=== PATIENT | female | born 1985 | race Hispanic/Latino ===

== ENCOUNTER 2021-12-30 21:13 | Inpatient (IN) | payer OTHER ==
[~2021-12-30] VITALS: Ht 152.4 cm; Wt 66.3 kg
[2021-12-30 22:12] LABS: BASOPHILS % (AUTO) 0.3 % (0.0-5.0); EOSINOPHILS % (AUTO) 0.5 % (0.0-8.0); HEMATOCRIT 37.6 % (36-48); LYMPHOCYTES % (AUTO) 6.7 % (21.0-51.0); MEAN CORPUSCULAR HEMOGLOBIN 26.8 pg (27.0-33.0); MEAN CORPUSCULAR HGB CONC 33.5 g/dL (32.0-36.0); MEAN CORPUSCULAR VOLUME 79.8 fL (79-99); MONOCYTES % (AUTO) 2.6 % (3.0-13.0); NEUTROPHILS % (AUTO) 89.5 % (40.0-77.0); PLATELET COUNT (AUTO) 173 K/uL (130-400); RED BLOOD CELL COUNT(AUTO) 4.71 MIL/uL (4.00-5.50); RED CELL DISTRIBUTION WIDTH 17.1 % (11.0-15.5); WHITE BLOOD COUNT (AUTO) 11.8 K/uL (4.8-10.8)
[2021-12-30] MEDS ORDERED: HYDROMORPHONE 0.5 MG SYG (0.5MG/0.5ML) ONE (22:18)
[2021-12-30 22:26] LABS: CREATININE 0.8 mg/dL (0.5-1.5); POTASSIUM 3.8 mmol/L (3.5-5.1)
[2021-12-30 22:30] LABS: ALBUMIN 3.9 g/dL (3.5-5.0); TOTAL PROTEIN, SERUM 8.3 g/dL (6.0-8.3)
[2021-12-30] MEDS ORDERED: HYDROMORPHONE 0.5 MG SYG (0.5MG/0.5ML) IVP ONE (22:30)
[2021-12-30] MEDS ORDERED: ONDANSETRON 4MG INJ IVP ONE (22:30)
[2021-12-30] MEDS ORDERED: 0.9%NACL 1000ML 1,000 ML IV ONE (22:30)
[2021-12-31] VITALS (24 sets, daily range): BP systolic 91–137; BP diastolic 44–87
[2021-12-31] MEDS ORDERED: HYDROMORPHONE 0.5 MG SYG (0.5MG/0.5ML) IVP ONE
[2021-12-31] MEDS ORDERED: MAG/ALUM/SIMETH 30 ML UDCUP PO ONE (01:00)
[2021-12-31] MEDS ORDERED: HYDROMORPHONE 1 MG INJ IV PRN (01:00)
[2021-12-31] MEDS ORDERED: LIDOCAINE HCL 2% VISCOUS 15 ML UDCUP PO ONE (01:00)
[2021-12-31] MEDS ORDERED: ONDANSETRON 4MG INJ IV PRN (01:00)
[2021-12-31] MEDS ORDERED: DICYCLOMINE HCL 10 MG/5 ML ML PO ONE (01:00)
[2021-12-31] MEDS ORDERED: MORPHINE 2 MG SYG IV PRN (01:00)
[2021-12-31 01:45] LABS: APPEARANCE,URINE CLEAR (CLEAR); BILIRUBIN,URINE NEGATIVE (NEGATIVE); COLOR,URINE COLORLESS (YELLOW); GLUCOSE, URINE (UA) 500 mg/dL (NEGATIVE); KETONES,URINE 40 mg/dL (NEGATIVE); LEUKOCYTE ESTERASE ,URINE NEGATIVE Leu/uL (NEGATIVE); NITRATE,URINE NEGATIVE (NEGATIVE); OCCULT BLOOD,URINE NEGATIVE (NEGATIVE); PROTEIN,URINE NEGATIVE (NEGATIVE); UROBILINOGEN,URINE 0.2 mg/dL (0.2-1.0)
[2021-12-31 01:50] LABS: BACTERIA,URINE RARE /HPF (None Seen); MUCUS,URINE RARE LPF (None Seen); RBC,URINE 0-1 /HPF (0-1); SQUAMOUS EPITHELIAL CELL,UR RARE /HPF (0-2)
[2021-12-31] MEDS ORDERED: PROMETHAZINE HCL 25 MG/ML 1ML AMPULE IM ONE (02:30)
[2021-12-31] MEDS: LACTATED RINGERS 1000ML 1,000 ML IV SCH ×3 (02:34→21:49)
[2021-12-31] MEDS: ZOSYN 3.375GM+NS 50ML 50 ML IV SCH ×3 (05:22→21:00)
[2021-12-31 05:48] LABS: BASOPHILS % (AUTO) 0.1 % (0.0-5.0); HEMATOCRIT 35.2 % (36-48); LYMPHOCYTES % (AUTO) 4.1 % (21.0-51.0); MEAN CORPUSCULAR HEMOGLOBIN 26.3 pg (27.0-33.0); MEAN CORPUSCULAR HGB CONC 32.1 g/dL (32.0-36.0); MEAN CORPUSCULAR VOLUME 81.9 fL (79-99); MONOCYTES % (AUTO) 2.4 % (3.0-13.0); NEUTROPHILS % (AUTO) 93.2 % (40.0-77.0); PLATELET COUNT (AUTO) 267 K/uL (130-400); RED CELL DISTRIBUTION WIDTH 16.9 % (11.0-15.5); WHITE BLOOD COUNT (AUTO) 9.6 K/uL (4.8-10.8)
[2021-12-31 06:02] LABS: CREATININE 0.7 mg/dL (0.5-1.5); MAGNESIUM 1.6 mg/dL (1.80-2.40); POTASSIUM 3.5 mmol/L (3.5-5.1)
[2021-12-31 06:09] LABS: HEMOGLOBIN A1C 6.5 % (4.0-6.0); INR 0.93 (0.85-1.15); PROTHROMBIN TIME 9.9 SEC (9.6-11.6)
[2021-12-31 06:11] LABS: PARTIAL THROMBOPLASTIN TIME 24.2 SEC (26.3-35.5)
[2021-12-31] MEDS: FAMOTIDINE 20MG VIAL IV SCH ×2 (09:06→21:49)
[2021-12-31] MEDS ORDERED: BUPIVACAINE/PF 0.5% 10ML VIAL ONE (16:47)
[2021-12-31] MEDS ORDERED: MIDAZOLAM HCL 1 MG/ML 2ML VIAL ONE (18:22)
[2021-12-31] MEDS ORDERED: PROPOFOL 10 MG/ML 20ML VIAL IV ONE (18:23)
[2021-12-31] MEDS ORDERED: FENTANYL CITRATE PF 50 MCG/1 ML 5ML AMP IV ONE (18:25)
[2021-12-31] MEDS ORDERED: ONDANSETRON 4MG INJ ONE (18:27)
[2021-12-31] MEDS ORDERED: ROPIVACAINE 0.5% 5MG/ML 30ML IJ ONE (18:35)
[2021-12-31] MEDS ORDERED: ROCURONIUM 10MG/1ML SYR 10 MG/ML ML ONE (18:38)
[2021-12-31] MEDS ORDERED: MEPERIDINE-PF 25 MG/ML SYG ONE (18:55)
[2021-12-31] MEDS ORDERED: KETOROLAC 30MG VIAL (30MG/ML) ONE (19:04)
[2021-12-31] MEDS ORDERED: GLYCOPYRROLATE 1 MG/5 ML SYRINGE ONE (19:30)
[2021-12-31] MEDS ORDERED: NEOSTIGMINE 5MG/5ML SYR IV ONE (19:30)
[2021-12-31] MEDS ORDERED: KETOROLAC 15MG/ML VIAL (15MG/ML) IM PRN (21:30)
[2021-12-31] MEDS ORDERED: MORPHINE 4 MG SYG IM PRN (21:30)
[2022-01-01] VITALS (10 sets, daily range): BP systolic 95–118; BP diastolic 50–64
[2022-01-01] MEDS: ZOSYN 3.375GM+NS 50ML 50 ML IV SCH ×3 (04:29→21:40)
[2022-01-01 05:27] LABS: HEMATOCRIT 30.4 % (36-48); MEAN CORPUSCULAR HEMOGLOBIN 26.3 pg (27.0-33.0); MEAN CORPUSCULAR HGB CONC 32.2 g/dL (32.0-36.0); MEAN CORPUSCULAR VOLUME 81.7 fL (79-99); RED BLOOD CELL COUNT(AUTO) 3.72 MIL/uL (4.00-5.50); RED CELL DISTRIBUTION WIDTH 17.1 % (11.0-15.5); WHITE BLOOD COUNT (AUTO) 7.7 K/uL (4.8-10.8)
[2022-01-01 05:52] LABS: ALBUMIN 2.5 g/dL (3.5-5.0); CREATININE 0.7 mg/dL (0.5-1.5); PHOSPHORUS 2.4 mg/dL (2.5-4.9); POTASSIUM 3.1 mmol/L (3.5-5.1)
[2022-01-01] MEDS: LACTATED RINGERS 1000ML 1,000 ML IV SCH ×2 (07:30→17:30)
[2022-01-01] MEDS: FAMOTIDINE 20MG VIAL IV SCH ×2 (09:20→21:40)
[2022-01-01] MEDS: KETOROLAC 15MG/ML VIAL (15MG/ML) IV PRN ×2 (09:24→18:38)
[2022-01-01] MEDS ORDERED: KCL 20 MEQ ERTAB PO ONE (13:00)
[2022-01-01] MEDS ORDERED: POLYETHYLENE GLYCOL 3350 17 GM POWD.PACK PO ONE (13:00)
[2022-01-01] MEDS ORDERED: ACET-2079 PO (18:02)
[2022-01-01] MEDS ORDERED: POLY17PO4 PO (18:02)
[2022-01-01] MEDS ORDERED: DOCU-116 PO (18:02)
[2022-01-02] MEDS: KETOROLAC 15MG/ML VIAL (15MG/ML) IV PRN ×3 (00:49→14:19)
[2022-01-02] MEDS: LACTATED RINGERS 1000ML 1,000 ML IV SCH (03:30)
[2022-01-02 03:40] VITALS: BP 118/67
[2022-01-02 05:43] LABS: HEMATOCRIT 26.4 % (36-48); MEAN CORPUSCULAR HEMOGLOBIN 26.3 pg (27.0-33.0); MEAN CORPUSCULAR HGB CONC 31.8 g/dL (32.0-36.0); MEAN CORPUSCULAR VOLUME 82.5 fL (79-99); RED BLOOD CELL COUNT(AUTO) 3.2 MIL/uL (4.00-5.50); WHITE BLOOD COUNT (AUTO) 5.3 K/uL (4.8-10.8)
[2022-01-02 05:54] LABS: CREATININE 0.7 mg/dL (0.5-1.5); POTASSIUM 3.3 mmol/L (3.5-5.1)
[2022-01-02 07:05] VITALS: BP 123/63
[2022-01-02] MEDS: ZOSYN 3.375GM+NS 50ML 50 ML IV SCH ×2 (07:23→12:07)
[2022-01-02] MEDS: FAMOTIDINE 20MG VIAL IV SCH (08:27)
[2022-01-02] MEDS ORDERED: POLYETHYLENE GLYCOL 3350 17 GM POWD.PACK PO SCH (09:00)
[2022-01-02 11:05] VITALS: BP 128/77
[2022-01-02] MEDS ORDERED: MORPHINE 4 MG SYG IM PRN (11:30)
[2022-01-02] MEDS ORDERED: KCL 20 MEQ ERTAB PO SCH (12:00)
[2022-01-02 13:47] LABS: HEMATOCRIT 27.2 % (36-48)
[2022-01-02 15:05] VITALS: BP 124/73
[2022-01-02] MEDS ORDERED: PIOG30TA10 PO (16:04)
[2022-01-02] MEDS ORDERED: METF-444 PO (16:04)
[2022-01-02] MEDS ORDERED: DULA0.75 SQ (16:06)
[2022-01-02] MEDS ORDERED: INSULIN HUMULIN R 100 UNIT/ML 3ML SQ SCH (16:30)
== END 2022-01-02 19:10 | disposition home or self-care (01) | DRG 419 ==
LOC: EDH 21:13 → EDBD 21:13 → EDHIP 21:14 → 3CH 12-31 05:09
PROVIDERS: ADMIT Internal Medicine; ATTEND Internal Medicine
PROC: 0FT44ZZ Resection of Gallbladder, Percutaneous Endoscopic Approach (ICD-10-PCS; principal; 2021-12-31 18:31)
DX: K80.00 Calculus of gallbladder with acute cholecystitis without obstruction (principal); D64.9 Anemia, unspecified; Z20.822 Contact with and (suspected) exposure to COVID-19; E11.65 Type 2 diabetes mellitus with hyperglycemia; Z83.3 Family history of diabetes mellitus; Z82.49 Family history of ischemic heart disease and other diseases of the circulatory system
CPT/HCPCS: 36415; 76705; 78226; 80048; 80053; 81001; 82948; 83036; 83690; 83735; 84100; 84484; 84703; 85014; 85018; 85025; 85027; 85610; 85730; 86850; 86900; 86901; 87040; 87635; 93005; A9537; G0378; J1170; J1885; J2175; J2250; J2270; J2405; J2543; J2704; J2710; J2795; J3010; J3490; J7030; J7120